=== PATIENT | female | born 1965 | race Caucasian/White ===

== ENCOUNTER → 2017-07-04 08:54 | Outpatient (CLI) | payer BC, SELFPAY ==
--- NOTE | 2017-07-04 08:58 | HPBD_ITS ---
STUDY: DUAL ENERGY X-RAY ABSORPTIOMETRY / DXA REASON FOR EXAM: Female, 52 years old. The patient is postmenopausal. TECHNIQUE: Bone Mineral Density (BMD) measurements of lumbar spine and bilateral hips were obtained. COMPARISON: None. FINDINGS: Lumbar Spine (L1-L4): g/cm2 (1.139) / T-score (-0.2) / Z-score (0.4) Findings are suggestive of normal bone density with a low fracture risk. Left Femur Total: g/cm2 (0.923) / T-score (-0.7) / Z-score (-0.1) Left Femoral Neck: g/cm2 (0.864) / T-score (-1.3) / Z-score (-0.4) Right Femur Total: g/cm2 (0.886) / T-score (-1.0) / Z-score (-0.4) Right Femoral Neck: g/cm2 (0.828) / T-score (-1.5) / Z-score (-0.6) HPBD/Dexa Bone Density Study (HP) IMPRESSION: The patient is considered osteopenic as outlined below according to World [employer]icio Organization (WHO) criteria with a moderate fracture risk. Reference Information: The T-score is the number of standard deviations above or below the standard which is normal for young adults at their peak bone mineral density. The World Health Organization (WHO) interprets the T-scores as follows: Above -1 Normal bone density Between -1 and -2.5 Osteopenia Equal to / or below -2.5 Osteoporosis As a practical clinical guideline, osteopenia may be graded as follows: Mild -1 through -1.5 Moderate -1.6 through -2.0 Severe -2.1 through -2.4 The Z-score is the number of standard deviations above or below age-matched controls. A Z-score of less than -1.5 would be considered abnormal. References: 1. NIH Osteoporosis and Related Bone Diseases http://www.osteo.org 2. International Society for Clinical Densitometry http://www.iscd.org 3. National Osteoporosis Foundation http://www.nof.org Electronically Signed: Konstantin Salazar MD at 14:19 EST Tel [phone], Service support ,
--- NOTE | 2017-07-04 08:58 | HPBI_ITS ---
MAMMOGRAPHY - BILATERAL SCREENING REASON FOR EXAM: Female, 52 years old. Routine annual screening examination. PERTINENT HISTORY: Aunt with breast cancer. TECHNIQUE: Digital bilateral breast gilberto (3D mammographic acquisition) in the CC and MLO projections. 2-D mediolateral oblique (MLO) and craniocaudad (CC) views of both breasts were obtained. CAD: Full Field Digital Mammography with Computer Added Detection was performed. COMPARISON: Comparison is made with prior study dated July 01, 2016 and October 23, 2013. FINDINGS: Breast Composition: The breasts are extremely dense, which lowers the sensitivity of mammography. There are no dominant masses or suspicious calcifications. No other significant abnormalities are identified. There has been no significant change since the prior study. HPBI/SCREENING MAMM (CAD), BILAT IMPRESSION: Stable bilateral screening mammogram. Yearly follow-up mammogram recommended. (A) ASSESSMENT CATEGORY: BIRADS Category 1: Negative. A letter regarding these results will be sent to the patient by the facility within 30 days. Approximately 10% of breast cancers are not detected by mammography. A normal mammogram should not delay biopsy of a clinically suspicious abnormality. [id number] Electronically Signed: Konstantin Salazar MD at 13:10 EST Tel [phone], Service support ,
== END ==
PROVIDERS: Family Provider Internal Medicine; PCP Internal Medicine; Visit Provider Internal Medicine
DX: Z78.0 Asymptomatic menopausal state (principal); Z12.31 Encounter for screening mammogram for malignant neoplasm of breast
CPT/HCPCS: 77063; 77067; 77080

== ENCOUNTER → 2019-04-10 14:26 | Outpatient (CLI) | payer SELFPAY ==
--- NOTE | 2019-04-10 14:34 | CT_ITS ---
HISTORY: Screening COMPARISON: None TECHNIQUE: Noncontrast CT images through the heart were obtained for calcium scoring purposes. A radiation dose optimization technique was utilized for this scan.CTDI 12.19 mGy. FINDINGS: ARTERY SCORES: LM 0 LAD 8.34 LCX 0 RCA 0 PDA 0 TOTAL CALCIUM SCORE 8.34 PERCENTILE 75th to 90th, meaning 75-90% of people of the same gender and similar age had the same or lower scores . ADDITIONAL FINDINGS: Heart size normal. Imaged lungs appear clear. CT/Limited Chest CT w/CCTA IMPRESSION: Minimal plaque burden. Significant coronary artery disease very unlikely. Calcium deposits do not correspond to the percentage of narrowing of the arteries. They do correlate directly to the amount of coronary plaque and to the risk of future coronary disease. The results should be discussed with your physician taking into account other risk factors such as age, gender, family history, diabetes, smoking and high cholesterol levels. If you experience chest pain, difficulty breathing, discomfort radiating to the neck or arm, or discomfort combined with lightheadedness, sweating, fainting or nausea, you should seek prompt medical attention. Individualized dose optimization techniques were used for this CT. at 2213 Reported and signed by: Orquidea Johansen MD Electronically Signed: Orquidea Johansen MD at 22:13 EST Tel , Service support ,
[2019-04-10 14:42] VITALS: BP 164/88; PULSE 64; RESP 16; O2SAT 99; BMI 20.5
--- NOTE | 2019-04-12 15:16 | CA.SCORE ---
Calcium Scoring Date of Study:: 04/10/19 Coronary Calcium Scoring: High-resolution Computed Tomographic imaging of the chest was performed on [ ], with particular attention paid to the coronary arteries. Images from the examination were analyzed for the presence and extent of coronary artery calcification , using coronary calcium quantification software. The patient tolerated the procedure well and there were no complications. The results of the coronary calcification analysis are provided below. - Findings Left Main (LM): 8.34 Left Anterior Descending (LAD): 0 Left Circumflex (LCX): 0 Right Coronary Artery (RCA): 0 Total Agatston Score: 8.34 Percentile Rankin Calcium Scoring Interpretation: 1-10 Minimal Plaque burden. Significant coronary artery disease very unlikely.
== END ==
PROVIDERS: Family Provider Internal Medicine; PCP Internal Medicine; Referring Provider Internal Medicine; Visit Provider Internal Medicine
DX: E78.00 Pure hypercholesterolemia, unspecified (principal)
CPT/HCPCS: 75571; 76380

== ENCOUNTER 2023-04-27 12:00 | Outpatient (RCR) | payer OTHER, SELFPAY ==
--- NOTE | 2023-04-03 15:46 | HP.PTEVAL ---
Patient's Visit Information Visit Information Visit Information: CELIA FORTUNE is a 58 year old F referred to Physical Therapy by Dr. Mine Gibbs DO with a diagnosis of LOW BACK PAIN. Date of Evaluation: 04/03/23 Physical Therapist: Alcira uDenas PT, Cert MDT Visit Plan Plan: Neutral Spine Core Stability Exercises and R ROM/stretching to help reduce stress to the Lumbar Spine with all Daily Activities. R LE Strengthening. Instruction in Proper Posture Control, Body Mechanics, and Appropriate Activity Modifications. HEP Instruction. Subjective Subjective: Work/Leisure: HOUSEWIFE Disability: NO Present symptoms: R LOW BACK PAIN. R HIP, LOWER ABDOMEN AND GROIN PAIN. NUMBNESS ALONG R BIKINI LINE. Present since: MAR 07 2023 Pain Scale: WORST 5/10, LEAST 0/10 Currently: 5/10 Is it getting better, worse or staying the same: GETTING BETTER Commenced as a result of: NO APPARENT REASON. SITTING ON THE FLOOR WHEN PAIN SHOT THROUGH HER TAILBONE INTO BACK. Worse: SITTING, RIDING IN THE CAR, LIFTING Better: MOVING, GETTING UP AND WALKING Disturbed sleep: NO Previous history/Previous treatment: HISTORY OF EPISODIC LOW BACK PAIN AND SPASMS MAINLY SELF TREATED AND MASSAGE THERAPY. NO CHIROPRACTIC. NO BACK SURGERY. NO BACK INJECTIONS. NO HISTORY OF R HIP PROBLEMS. Treatment this episode: 2 KINDS OF MUSCLE RELAXERS. COURSE OF STEROIDS. Coughing/sneezing/straining: NOT SURE. Gait: NORMAL Bowel or Bladder Dysfunction: NO Accidents: NO Unexplained weight loss: NO Imaging: NORMAL RECENT LUMBAR X-RAYS PER PATIENT REPORT. PMH/Recent major surgery: HTN. OTHER: I HAVE TO GO TO AN EVENT TOMORROW AND SIT FOR HOURS AND I AM DREADING IT. Objective Objective: Sitting/Standing Posture: FAIR. Lordosis: NORMAL Active Correction of posture: WORSE Other Observations: INDEP GAIT AND TRANSFERS WITH NO GROSS DEVIATIONS NOTED. Sensory deficit: MINGO LE LIGHT TOUCH SENSATION GROSSLY INTACT AND SYMMETRICAL INCLUDING R GROIN AREA. ROM deficit: DECREASED R HIP IR/ER BY APPROX 20% COMPARED TO L IN SITTING AND LYING AND ER PAIN INTO FLEX IN LYING. ERP R HIP IR/ER. NW A RESULT. Motor deficit: L LE 5/5. R LE: HIP FLEX 4-/5, ABD 4/5, ADD 4/5. KNEE 5/5. ANKLE 5/5. R HIP PAIN WITH FLEXION TESTING. Dural Signs: NEGATIVE MINGO LE'S. Lumbar mvmt loss: flex - NIL ext - MIN TO MOD R SG - NIL L SG - MIN TO MOD - PRODUCES L LBP AND L GROIN NUMBNESS. NW Core strength: FAIR Palpation: INCREASED MUSCLE TONE MINGO PARASPINALS AND TENDERNESS R LOWER LUMBAR PARASPINALS. NO R LATERAL HIP TENDERNESS. NO R GROIN TENDERNESS. TREATMENT: NEUROMUSCULAR REEDUCATION - RETRAINING OF MVMT AND POSTURE FOR SITTING, LYING AND STANDING ACTIVITIES. OTHER: PATIENT DENIES BEING ON AN EX PROGRAM OTHER THAN DOING A LOT OF WALKING. Special Tests R Hip Scour: Positive R Hip SCOTTIE - Intraarticular Pathology: Positive R Hip FADDIR - Labrum: Positive Balance/Special Test Scores Oswestry Low Back Score: 15 Goals Goal 1:: DECREASE C/O R BACK, HIP AND GROIN PAIN BY 75% TO EASE ADL'S. Goal Time Frame: 4-6 Weeks Goal 2:: LUMBAR ROM WFL WITHOUT PAIN ALL PLANES TO EASE ADLS Goal Time Frame: 4-6 Weeks Goal 3:: GOOD CORE STRENGTH AND 5/5 R LE STRENGTH TO ASSIST WITH RETURN TO PLOF Goal Time Frame: 4-6 Weeks Goal 4:: PATIENT WILL BE INDEP WITH A HEP FOR CONTINUED IMPROVEMENT ONCE FORMAL PHYSICAL THERAPY CONCLUDES. Goal Time Frame: 4-6 Weeks Rehabilitation Potential Physical Therapy Diagnosis: R LOW BACK, R HIP AND R GROIN PAIN. R BACK AND HIP STIFFNESS. R HIP WEAKNESS. CORE WEAKNESS. Rehabilitation Potential: Good Anticipated Interventions Patient/Client Instruction: Educate patient on: Condition, Plan of Care and Risk Factors For the Purpose of:: To improve self management Therapeutic Exercise to Include: Strength training, Body mechanics, Postural training, Flexibilty training, Neuromotor development, In an aquatic setting and Dynamic Lumbar Stabilization For the Purpose of:: To decrease pain, To increase ROM, To improve muscle performance and motor function, To improve performance and independence with ADL's and To improve ability of physical actions for home/community/work/leisure Thermo therapy (hot pack): Yes Ultrasound (thermal/non thermal): Yes For the Purpose of:: To decrease pain and To improve nutrient delivery to tissue Text: Thank you for the opportunity to evaluate your patient. For Medicare and Medicare HMO plans, please review the plan of care and approve it. It will need to be FAXED BACK to us at [phone] for Medicare purposes. For Medicare only, by signing this I certify the plan of care. Please let me know if there are questions or concerns regarding this plan of care. Physician Signature: Date:
--- NOTE | 2023-04-27 12:42 | HP.PTDCSUM ---
Discharge Summary D/C summary: It has been my pleasure to treat CELIA FORTUNE referred by Dr. Mine Gibbs DO, with the diagnosis of LOW BACK PAIN for a total of 4 visit(s). Discharge Date: 04/27/23 Please see the following information for a summary of their discharge status. Subjective Subjective: PATIENT REPORTS SHE IS DOING GOOD. SHE WOULD LIKE TO CONTINUE WITH A HOME PROGRAM AFTER TODAY. Pain R LOW BACK: Pain Intensity (Out of 10): 2 R ANTERIOR HIP/GROIN: Pain Intensity (Out of 10): 3 Overall Improvement % Improvement: 80 Objective Objective/Function: ALL GOALS MET. INDEP WITH HEP. LUMBAR ROM WNL ALL PLANES WITHOUT C/O PAIN. MINGO LE STRENGTH 5/5. Goals Goal 1:: DECREASE C/O R BACK, HIP AND GROIN PAIN BY 75% TO EASE ADL'S. Goal Progress: Goal Met Goal 2:: LUMBAR ROM WFL WITHOUT PAIN ALL PLANES TO EASE ADLS Goal Progress: Goal Met Goal 3:: GOOD CORE STRENGTH AND 5/5 R LE STRENGTH TO ASSIST WITH RETURN TO PLOF Goal Progress: Goal Met Goal 4:: PATIENT WILL BE INDEP WITH A HEP FOR CONTINUED IMPROVEMENT ONCE FORMAL PHYSICAL THERAPY CONCLUDES. Goal Progress: Goal Met Plan Plan: D/C TO HEP. D/C Information d/c sentence: If there are questions or concerns regarding this patient's physical therapy, please feel free to call me at [phone]. Thank you for the referral of this patient. Sincerely, Alcira Duenas, PT, Cert MDT Balance/Gait/Functional tests Balance/Special Test Scores Oswestry Low Back Score: 2 Improvement % Improvement: 80
== END 2023-04-27 19:00 | disposition home or self-care (01) ==
LOC: PT 12:00
PROVIDERS: PCP Internal Medicine; Referring Provider Internal Medicine; Visit Provider Internal Medicine
DX: M54.50 Low back pain, unspecified (principal)
CPT/HCPCS: 97110; 97112; 97162; 97530